=== PATIENT | male | born 1955 | race Caucasian/White ===

== ENCOUNTER 2023-10-15 20:35 | Emergency (ER) | payer BC, SELFPAY ==
[2023-10-15] VITALS (7 sets, daily range): BP systolic 102–120; BP diastolic 66–76; PULSE 72–76; BMI 23.7
[2023-10-15 20:53] LABS: % Basophils 0.9 % (0-2); % Eosinophils 2.9 % (0-6); % Immature Granulocytes 0.2 % (0-0.5); % Lymphocytes 32.9 % (20.5-51.1); % Neutrophils 54.1 % (42.2-75.2); Absolute Basophils 0.1 10^3/uL (0-0.2); Absolute Eosinophils 0.2 10^3/uL (0-0.7); Absolute Lymphocytes 1.9 10^3/uL (1.2-3.4); Absolute Monocytes 0.5 10^3/uL (0.1-0.6); Absolute Neutrophils 3.2 10^3/uL (1.4-6.5); Hemoglobin 12.9 g/dL (13.0-18.0); Mean Corp Hgb Conc. 34.9 g/dL (33.0-37.0); Mean Corpuscular Hgb 32.7 pg (27.0-31.0); Mean Corpuscular Volume 93.9 fL (80.0-94.0); Mean Platelet Volume 8.5 fL (7.4-10.4); Nucleated Red Blood Cells % 0 % (-); Platelet Count 205 10^3/uL (130-400); Red Blood Cell Count 3.94 10^6/uL (4.70-6.10); Red Cell Dist. Width 12.9 % (11.5-14.5); White Blood Cell Count 5.8 10^3/uL (4.8-10.8)
[2023-10-15 21:24] LABS: ALT (SGPT) 24 U/L (0-50); AST (SGOT) 35 U/L (17-59); Albumin 3.8 g/dl (3.5-5.0); Alkaline Phosphatase 39 U/L (38-126); Blood Urea Nitrogen 27 mg/dl (9-20); Calcium 9.1 mg/dl (8.4-10.2); Carbon Dioxide 22 mmol/L (22-30); Chloride 102 mmol/L (98-107); Estimated Creatinine Clearance 93 ml/min; Glucose 128 mg/dl (70-99); Potassium 3.9 mmol/L (3.5-5.1); Sodium 134 mmol/L (135-145); Total Bilirubin 0.8 mg/dl (0.2-1.3); Total Protein 6.4 g/dl (6.3-8.2); eGFR > 60.00
--- NOTE | 2023-10-15 22:17 | ED.GENMED ---
History of Present Illness
General
Chief Complaint: Fainting/Passed Out
Source: patient
Time Seen by Provider: 10/15/23 21:47
Travel History
Have you had any contact with someone who has COVID-19?: No
Do you have any symptoms of coronavirus? Fever > 100 degrees, chills, cough, shortness of breath, sore throat, loss of taste or smell, muscle aches, or headache?: No
History of Present Illness
History of Present Illness:
68-year-old male presenting emergency department for evaluation after he had a syncopal episode while at a high school reunion event earlier this evening. Patient reports that prior to the syncope he had started to feel unwell and as if he were
going to syncopize and then had a witnessed syncope where states he seemed to shake for a couple of seconds and then was unconscious for about 15 to 20 seconds. Patient reports that upon arrival to the emergency department he is feeling much
better and without any symptoms. He does note that over the last couple of days he has been outside doing a lot work and believes he was not staying hydrated. He also notes that he had 3 beers prior to the event and a cocktail while at the event.
Patient denies any chest pain, palpitations, diaphoresis, exertional dyspnea, orthopnea, abdominal pain, nausea, vomiting. Patient states that he had 1 similar episode many many years ago. No other concerns.
Past History
Past History
ED Past Medical History: None
ED Past Surgical History: Other
Social History
Tobacco: Non-smoker
Alcohol: Occasional
Drug: None
Personal:
Living: with family
Employment: Retired
Review of Systems
Review of Systems
All Other Systems: ROS reviewed and negative except as documented in HPI and ROS
Phy Exam
Physical Exam
Physical Exam:
GENERAL: Alert , in no apparent distress
EYE: conjunctiva clear
NECK: Supple
ENT: o/p clr, mmm.
CARDIAC: Regular rate and rhythm, no murmur
LUNGS: Clear breath sounds bilaterally, no acute respiratory distress, no wheezes/rales/rhonchi
Abdomen: Soft, nontender, nondistended
NEUROLOGICAL: Alert and oriented
SKIN: Warm and dry, skin intact.
MUSCULOSKELETAL: well perfused.
PSYCH: Normal and appropriate interaction.
Scores
Heart Failure Risk
Heart Failure Risk Score: Not Applicable
Heart Score for Chest Pain Patients
STEMI patient?: Not applicable
Withdrawal Assessment of Alcohol
Withdrawal Assessment Completed?: Not applicable
Course
Orders/Labs/Results
Orders:
Orders
10/15/23 20:37
EKG [Electrocardiogram (*1)] Urgent
Reason for Study: Tachycardia
EKG- Treatment ONCE
10/15/23 20:46
Complete Blood Count/With Diff Urgent
Comprehensive Metabolic Panel Urgent
10/15/23 22:03
Orthostatic VS- Treatment ONCE
Abnormal Lab Results
10/15/23
20:46
RBC 3.94 L 10^6/uL
(4.70-6.10)
Hgb 12.9 L g/dL
(13.0-18.0)
Hct 37.0 L %
(39.0-52.0)
MCH 32.7 H pg
(27.0-31.0)
Sodium 134 L mmol/L
(135-145)
BUN 27 H mg/dl
(9-20)
Glucose 128 H mg/dl
(70-99)
10/15/23 20:46
10/15/23 20:46
Vital Signs
Initial and Last Documented VS:
Initial Vital Signs
Temp Pulse Resp BP Pulse Ox
98.0 F 78 13 102/66 96
10/15/23 20:37 10/15/23 20:37 10/15/23 20:37 10/15/23 20:37 10/15/23 20:37
Last Documented Vital Signs
Temp Pulse Resp BP Pulse Ox
98.0 F 86 18 115/73 96
10/15/23 20:37 10/15/23 22:15 10/15/23 22:15 10/15/23 22:15 10/15/23 22:15
MDM/Problems Addressed
Differential Diagnosis Includes:
vasovagal syncope, orthostasis, dehydration, less concern for cardiac dysrhythmia, I do not have concern for seizure
MDM/Problems Addressed:
68-year-old male presenting the emergency department for evaluation after he had a witnessed syncopal episode earlier this evening, symptoms now fully resolved. Labs have been started in triage and fluids have been given by EMS en route. Suspect
dehydration/vasovagal episode. Will continue fluids and assess orthostatic vital signs. Anticipate discharge home following.
*Pulse Oximetry
Patient hypoxic: no
*EKG
Interpreted by ED Provider?: Yes
Interpretation: normal
Comparison EKG: no comparison EKG present
Heart Rate: 76
Rate: normal
Rhythm: sinus
[place]: normal axis
Ischemia: no ischemia
*Category Planner Interpretation
Rate: normal
Rhythm: sinus
*Critical Care Note
Total Time (30-74mins, 75-104mins- exclusive of procedures): Not Applicable
Patient Management
Escalation/DeEscalation of care consider admission/obs:
Patient continues to feel well, ambulatory with steady gait, orthostatic vital signs unremarkable. Stable for discharge home.
ED Attending Note
-
Portions of this chart may have been created with voice recognition software.� Occasional wrong word or��sound alike� substitutions may have occurred due to the inherent limitations of voice recognition software.
Discharge Plan
Departure
Patient Disposition: Home (Routine Discharge)
Date of Disposition: 10/15/23
Time of Disposition: 22:17
Patient with high blood pressure during this ER visit?: No
Discharge Problem:
Vasovagal syncope
Instructions: Syncope (Fainting) (DC)
Referrals:
UNKNOWN - PT DOES,NOT KNOW [Family Provider] -
Interventions
Interventions:
*Risk Screen - Suicide Last Done: 10/15/23 20:37
*General Assessment Last Done: 10/15/23 20:37
*Neglect/Abuse Screening Last Done: 10/15/23 20:37
ED- Fall Risk Assessment Last Done: 10/15/23 20:42
*ED COVID-19 Vaccine History Last Done: 10/15/23 20:37
*Nursing Disposition Last Done: 10/15/23 22:24
ED- Cardiac Assessment Last Done: 10/15/23 20:42
ED- Neurological Assessment Last Done: 10/15/23 20:42
Discharge Date and Time
Discharge Date/Time: 10/15/23 22:24
Print Language: GEORGIAN
== END 2023-10-15 22:24 | disposition home or self-care (01) ==
LOC: EMR 20:35
PROVIDERS: EMERGENCY PHYSICIAN Emergency Medicine
DX: R55 Syncope and collapse (principal)
CPT/HCPCS: 99283; 80053; 85025; 93005

== ENCOUNTER → 2024-07-30 16:11 | Outpatient (REF) | payer BC, SELFPAY | LOC: RAD 16:11 | PROVIDERS: ATTENDING PHYSICIAN Surgery; FAMILY PHYSICIAN Family Medicine | DX: R31.9 Hematuria, unspecified (principal) | CPT/HCPCS: 74178; Q9967 ==